=== PATIENT | male | born 1960 | race American Indian/Alaskan Native ===

== ENCOUNTER 2019-03-07 11:38 | Emergency (ER) | payer BC ==
[2019-03-07 11:45] VITALS: BP 212/117
[2019-03-07] MEDS ORDERED: CATAPRES PO ONE (12:13)
--- NOTE | 2019-03-07 12:13 | Emergency Department Report ---
ED General Adult HPI - General Chief complaint: High BP Stated complaint: HIGH BP Time Seen by Provider: 03/07/19 11:52 Source: patient Mode of arrival: Ambulatory Limitations: No Limitations - History of Present Illness Initial comments: Patient is a 58-year-old male past medical history of high blood pressure who presents with medication refill. Patient states that he has elevated blood pressure and he is an [employer] medicine for the last couple days. Patient denies having any chest pain headache nausea or vomiting. He has no shortness of breath he just states that he has some mild fluid around his ankles. - Related Data Previous Rx's Medication Instructions Recorded Last Taken Type Bumetanide [Bumex 1 mg tab] 1 mg PO DAILY #60 tab 03/07/19 Unknown Rx Losartan [Cozaar] 50 mg PO QDAY #60 tablet 03/07/19 Unknown Rx Minoxidil [Loniten] 2.5 mg PO QDAY #60 tablet 03/07/19 Unknown Rx Pantoprazole [Protonix TAB] 40 mg PO BID #60 tablet 03/07/19 Unknown Rx cloNIDine [Catapres] 0.2 mg PO QHS #30 tablet 03/07/19 Unknown Rx metOLazone [Metolazone] 5 mg PO QDAY #30 tablet 03/07/19 Unknown Rx Allergies Allergy/AdvReac Type Severity Reaction Status Date / Time No Known Allergies Allergy Unverified 03/07/19 11:39 ED Review of Systems ROS: Stated complaint: HIGH BP Other details as noted in HPI Constitutional: denies: chills, fever Eyes: denies: eye pain, eye discharge, vision change ENT: denies: ear pain, throat pain Respiratory: denies: cough, shortness of breath, wheezing Cardiovascular: denies: chest pain, palpitations Endocrine: no symptoms reported Gastrointestinal: denies: abdominal pain, nausea, diarrhea Genitourinary: denies: urgency, dysuria Musculoskeletal: denies: back pain, joint swelling, arthralgia Skin: denies: rash, lesions Neurological: denies: headache, weakness, paresthesias Psychiatric: denies: anxiety, depression Hematological/Lymphatic: denies: easy bleeding, easy bruising ED Past Medical Hx - Past Medical History Hx Hypertension: Yes Hx Diabetes: Yes - Surgical History Past Surgical History?: No - Social History Smoking Status: Current Every Day Smoker Substance Use Type: Prescribed - Medications Home Medications: Home Medications Medication Instructions Recorded Confirmed Last Taken Type Bumetanide [Bumex 1 mg tab] 1 mg PO DAILY #60 tab 03/07/19 Unknown Rx Losartan [Cozaar] 50 mg PO QDAY #60 tablet 03/07/19 Unknown Rx Minoxidil [Loniten] 2.5 mg PO QDAY #60 tablet 03/07/19 Unknown Rx Pantoprazole [Protonix TAB] 40 mg PO BID #60 tablet 03/07/19 Unknown Rx cloNIDine [Catapres] 0.2 mg PO QHS #30 tablet 03/07/19 Unknown Rx metOLazone [Metolazone] 5 mg PO QDAY #30 tablet 03/07/19 Unknown Rx ED Physical Exam - General Limitations: No Limitations General appearance: alert, in no apparent distress - Head Head exam: Present: atraumatic, normocephalic - Eye Eye exam: Present: normal appearance - ENT ENT exam: Present: mucous membranes moist - Neck Neck exam: Present: normal inspection - Respiratory Respiratory exam: Present: normal lung sounds bilaterally. Absent: respiratory distress - Cardiovascular Cardiovascular Exam: Present: regular rate, normal rhythm. Absent: systolic murmur, diastolic murmur, rubs, gallop - GI/Abdominal GI/Abdominal exam: Present: soft, normal bowel sounds - Rectal Rectal exam: Present: deferred - Extremities Exam Extremities exam: Present: normal inspection, pedal edema (+1) - Back Exam Back exam: Present: normal inspection - Neurological Exam Neurological exam: Present: alert, oriented X3 - Psychiatric Psychiatric exam: Present: normal affect, normal mood - Skin Skin exam: Present: warm, dry, intact, normal color. Absent: rash ED Course Vital Signs 03/07/19 03/07/19 11:43 12:18 Temperature 98.3 F Pulse Rate 67 Respiratory 18 Rate Blood Pressure 212/117 212/117 O2 Sat by Pulse 96 Oximetry ED Medical Decision Making - Medical Decision Making Chief medical diagnosis: Essential hypertension Refill patient's medications and I'll give patient oral clonidine. Discussed wound patient patient agrees with plan additional verbal discharge instructions were given. Critical care attestation.: If time is entered above; I have spent that time in minutes in the direct care of this critically ill patient, excluding procedure time. ED Disposition Clinical Impression: Encounter for medication refill, Essential hypertension Disposition: DC-01 TO HOME OR SELFCARE Is pt being admited?: No Does the pt Need Aspirin: No Condition: Stable Instructions: Hypertension (ED) Prescriptions: cloNIDine [Catapres] 0.2 mg PO QHS #30 tablet Bumetanide [Bumex 1 mg tab] 1 mg PO DAILY #60 tab Losartan [Cozaar] 50 mg PO QDAY #60 tablet Minoxidil [Loniten] 2.5 mg PO QDAY #60 tablet metOLazone [Metolazone] 5 mg PO QDAY #30 tablet Pantoprazole [Protonix TAB] 40 mg PO BID #60 tablet
== END 2019-03-07 12:36 | disposition home or self-care (01) ==
LOC: ED 11:38
DX: I10 Essential (primary) hypertension (principal); Z76.0 Encounter for issue of repeat prescription; E11.9 Type 2 diabetes mellitus without complications; F17.200 Nicotine dependence, unspecified, uncomplicated; Z79.899 Other long term (current) drug therapy
CPT/HCPCS: 99282